=== PATIENT | female | born 1945 | race Caucasian/White ===

== ENCOUNTER 2016-12-29 13:24 | Emergency (ER) | payer OTHER, MEDICARE, BC ==
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
[2016-12-29 15:45] VITALS: BP 128/61
== END 2016-12-29 15:30 | disposition home or self-care (01) ==
LOC: ER 13:24
DX: S80.11XA Contusion of right lower leg, initial encounter (principal); M25.561 Pain in right knee; V43.52XA Car driver injured in collision with other type car in traffic accident, initial encounter; M19.90 Unspecified osteoarthritis, unspecified site
CPT/HCPCS: 99283